=== PATIENT | male | born 1965 | race Caucasian/White ===

== ENCOUNTER 2016-09-19 04:48 | Inpatient (IN) | payer BC ==
[~2016-09-19] VITALS: Ht 180.3 cm; Wt 93.0 kg
[~2016-09-19 04:48] MED LIST: BACLOFEN10 MG PO; CIPRO500 MG PO; COLACE100 MG PO; FLAGYL500 MG PO; IBUPROFEN600 MG PO; LISINOPRIL20 MG PO; NORCO 5-325 TA1 EACH PO; TRAMADOL HCL50 MG PO; TRAZODONE HCL150 MG PO
[2016-09-19] MEDS ORDERED: TRAZODONE HCL100 MG PO (10:51)
--- NOTE | 2016-09-19 10:57 | NUR ---
MED REC COMPLETED WITH KIM AND [facility] REFILL HISTORY
--- NOTE | 2016-09-19 12:12 | NUR ---
PT IS RESTING IN BED SAFELY WITH EYES CLOSED AND RESPERATIONS EVEN. PT FINISHED HIS TRAY AND DID NOT NEED ANYTHING ELSE AT THE MOMENT.
--- NOTE | 2016-09-19 14:22 | NUR ---
HELPED PT TO BATHROOM, THEN RETURN TO BED. PT IS NOW RESTING IN BED WITH CALL LIGHT IN REACH. PT ASKED FOR NURSE TO COME LOOK AT IV SITE. NURSE NOTIFIED.
--- NOTE | 2016-09-19 15:03 | NUR ---
PT ARRIVED AT THE UNIT FROM ER. PT SETTLED IN BED WITH NO APPEARANT DISTRESS. PT STATES NO PAIN AT THIS TIME, FEELS SLIGHTLY BLOATED. PT UP TO TOILET WITH SBA. VOIDING WELL. IV SITE RUNNING WELL.
--- NOTE | 2016-09-19 17:37 | NUR ---
PT AMBULATES TO TOILET, 1 PERSON ASSIST, VOIDING WELL. PT STATES MILD PAIN IN ABDOMEN WITH BOWEL MOVEMENTS. PRN PAIN MEDS GIVEN X1. PT TOLERATING CLEAR LIQUID DIET WELL.
--- NOTE | 2016-09-19 21:08 | NUR ---
PT LAYING IN BED, AWAKE. ALERT AND ORIENTED X4, PLEASENT DEMEANOR. DENIES PAIN AT THIS TIME, STATES "ITS GOOD RIGHT NOW, I JUST FEEL A TINY BIT BLOATED." REFUSED ANYTHING FOR PAIN. DR ELIZA JIN IN PT ROOM, ORDERED TRAZADONE FOR TONIGHT, ORDERED HOME DOSAGE. GAVE FRESH ICE WATER. PT DENIES FURTHER NEEDS. CALL LIGHT IN REACH.
--- NOTE | 2016-09-19 23:47 | NUR ---
pt up to bathroom, passed flatus. pt complained of 6/10 pain while on toilet, gave dilaudid per pt request. no further needs. call light in reach.
--- NOTE | 2016-09-20 00:55 | NUR ---
PT LAYING IN BED AWAKE, BROUGHT MORE ICE WATER PER REQUEST. PT STATES "IM JUST NOT ABLE TO SLEEP TONIGHT." PT NOW UP TO BEDSIDE, "I THINK ILL JUST READ MY BOOK FOR A WHILE, IT FEELS REALLY GOOD TO MOVE AROUND AGAIN." PT HAS NO NEEDS AT THIS TIME. CALL LIGHT IN REACH.
--- NOTE | 2016-09-20 02:50 | NUR ---
PT REMAINS AWAKE TONIGHT, LAYING IN BED, LIGHTS AND TV OFF, BUT HE IS READING ON HIS BERTO. PT DENIES PAIN AT THIS TIME. DENIES ANY NEEDS AT THE MOMENT. CALL LIGHT IN REACH. PT STATES "ITS GETTING TO BE ABOUT THE TIME I GET UP ANYWAY."
--- NOTE | 2016-09-20 04:35 | NUR ---
PT UP TO RESTROOM. DENIES PAIN. REPORTS HAVING "LOTS OF GAS."
--- NOTE | 2016-09-20 05:55 | NUR ---
PT HAD UNEVENTFUL NIGHT. HE DID NOT GET MUCH SLEEP, REPORTS HE SUFFERS FROM CHRONIC INSOMNIA AT HOME. PT VERY PLEASENT, ALERT AND ORIENTED X4. STANDBY ASSIST. PAIN OFF AND ON, DILAUDID X2 COVERED PAIN WELL. NO NAUSEA. BM X2, DARK LOOSE STOOL. IV ABX. PT USES CALL LIGHT APPROPRIATLY.
--- NOTE | 2016-09-20 07:22 | NUR ---
BEDSIDE HANDOFF REPORT RECIEVED FROM NAVIGATION OFFICER RN. PT RESTING IN BED. PT DENIES NEEDS AT THIS TIME. REQUESTING TO SHOWER AFTER BREAKFAST.
--- NOTE | 2016-09-20 08:15 | NUR ---
PT RESTING IN BED. PT STATES PAIN TOLERABLE AT THIS TIME, INCREASED PAIN WITH BOWEL MOVEMENTS. PT DENIES SOB, ON ROOM AIR, LUNG SOUNDS CLEAR. PT DENIES NAUSEA, TOLERATING CLEAR LIQUID DIET, BOWEL TONES ACTIVE. PT REQUESTIGN TO SHOWER, SALINE LOCKED FOR SHOWER. PT DENIES NEEDS AT THIS TIME.
--- NOTE | 2016-09-20 09:00 | NUR ---
PT COMPLETED SHOWER. IV FLUIDS CONTINUED AT 85 ML/HR. IV ABX INFUSING. PT DENIES NEEDS AT THIS TIME.
--- NOTE | 2016-09-20 09:55 | NUR ---
PT AMBULATING IN DIAZ, INDPENDENT, TOLERATING WELL.
--- NOTE | 2016-09-20 12:33 | NUR ---
PT ASSISTED TO BATHROOM TO VOID. PT GIVEN PO FLAGYL AND CIPRO, PROVIDED PUDDING TO DECREASE STOMACH UPSET. PT DENIES NEEDS AT THIS TIME.
--- NOTE | 2016-09-20 13:29 | NUR ---
PT REQUESTING PAIN MEDICATION. 0.5 MG IV DILAUDID GIVEN. PT RATING PAIN 2/10 AT REST 6/10 WITH BOWEL MOVEMENT. PT DENIES OTHER NEEDS AT THIS TIME.
--- NOTE | 2016-09-20 14:23 | NUR ---
PT PAIN 05/05. PT ASSISTED TO BATHROOM TO VOID, SBA FOR IV LINE. PT DENIES NEEDS AT THIS TIME.
--- NOTE | 2016-09-20 16:20 | NUR ---
PT RESTING IN BED, FAMILY AT BEDSIDE. PT TOLERATING FULL LIQUID DIET, DENIES NAUSEA. IV FLUIDS INFUSING, IV SITE PATENT. PT WITH SCDS IN PLACE. PT DENIES NEEDS AT THIS TIME.
--- NOTE | 2016-09-20 17:13 | NUR ---
PT ALERT/ORIENTED. PT ON ROOM AIR. PT ADVANCED TO FULL LIQUID DIET. D5LR INFUSING AT 85ML/HR. PT TRANSITIONED TO PO CIPRO AND FLAGYL. PT UP WITH SBA TO BATHROOM, AMBULATED INDEPENDENTLY IN DIAZ. PLAN TO CONTINUE MONITORING RESPONSE TO ABX, POSSIBLE SURGERY TO DRAIN ABSCESS. PT VOIDING QS, HAVING LOOSE BM.
--- NOTE | 2016-09-20 20:30 | NUR ---
PT REQUESTED HS MEDICATIONS TO BE GIVEN AT AROUND "8:30 TONIGHT," SO THAT HE CAN STAY ON HIS "NORMAL ROUTINE." MEDS GIVEN. PT INDEPENDANT IN ROOM. ALERT AND ORIENTED X4. PT RATES PAIN AT 2/10, STATES "JUST A LITTLE UNCOMFORTABLE." REFUSED PAIN MEDICATIONS. GAVE FRESH ICE WATER. VITALS TAKEN. BLINDS CLOSED, LIGHTS TURNED OFF, CURTAIN AND DOOR SHUT. CALL LIGHT IN REACH.
--- NOTE | 2016-09-21 02:20 | NUR ---
PT HAS HAD UNEVENTFUL NIGHT. RESTING QUIETLY IN ROOM.
--- NOTE | 2016-09-21 05:50 | NUR ---
PT NPO AT THIS TIME, PT VERBALIZED UNDERSTANDING.
--- NOTE | 2016-09-21 05:52 | NUR ---
PT HAD UNEVENTFUL NIGHT. REPORTS FEELING MUCH BETTER THIS MORNING. NO NAUSEA OVERNIGHT. NO PAIN. NPO PER DR KAY SINCE THIS MORNING AT 0545. IV INFUSING WNL. PT ALERT AND ORIENTED X4. PLEASENT DEMEANOR. USES CALL LIGHT APPROPRIATLY. INDEPENDANT IN ROOM.
--- NOTE | 2016-09-21 07:25 | NUR ---
BEDSIDE HANDOFF REPORT RECEIVED FROM TILE GRADER RN. PT AMBULATING IN [place]. IV FLUIDS INFUSING D5LR AT 85 ML/HR. PT REQUESTING TO SHOWER THIS AM.
--- NOTE | 2016-09-21 07:37 | NUR ---
PT SALINE LOCKED FOR SHOWER. NURSE AIDE AT BEDSIDE ASSISTING PT.
--- NOTE | 2016-09-21 07:45 | NUR ---
CALLED FOR VERIFICATION ON PO ABX WITH NPO STATUS. TELEPHONE ORDER TO GIVE CIPRO AND HOLD FLAGYL.
--- NOTE | 2016-09-21 09:06 | NUR ---
PT RESTING IN BED. PT SHOWERED. PT ALERT/ORIENTED. PT LUNG SOUNDS CLEAR, ON ROOM AIR. PT BOWEL TONES ACTIVE, DENIES NAUSEA, STATES "I FEEL A LITTLE BETTER TODAY." PT NPO FOR POSSIBEL SURGERY TODAY, AWAITING DR KAY TO DISCUSS PLAN WITH PT. IV FLUIDS INFUSIN D5LR AT 85 ML/HR. PT REQUESTING INFORMATION TO BE SENT TO SHORT TERM DISABILITY, DISCUSSED WITH PT. PT DENIES OTHER NEEDS AT THIS TIME.
--- NOTE | 2016-09-21 11:00 | NUR ---
PT UP TO BATHROOM, LOOSE BOWEL MOVEMENT. PT DENIES NEEDS AT THIS TIME. PT AWAITING DR. KAY TO DISCUSS TREATMENT PLAN.
--- NOTE | 2016-09-21 11:54 | NUR ---
PT WAITING FOR CONSULT WITH DR KAY ABOUT POSSIBLE SURGERY TODAY. PT BEGAN TO DISCUSS WITH ME ABOUT WHETHER HE SHOULD CALL HIS AT WORK AND TELL HER OF THE POSSIBLE PLANS FOR TODAY, OR WAIT UNTIL WE KNOW FOR SURE. WE LOOKED AT VARIOUS SCENARIOS AND DECIDED TO PRAY FOR WISDOM AND DIRECTION. PT THANKED ME, I WILL CONTINUE TO FOLLOW
--- NOTE | 2016-09-21 14:20 | NUR ---
PT TO OR WITH OR NURSE. LR ON STRAIGHT TUBING HANGING. REPORT GIVEN TO NURSE. PREPROCEDURE CHECK LIST COMPLETED.
--- NOTE | 2016-09-21 17:34 | NUR ---
PT OFF FLOOR.
--- NOTE | 2016-09-21 18:33 | NUR ---
09/21/161832 Tegan Hillman 1818 - PT ARRIVED TO PACU. MAINTAINING OWN AIRWAY, BITE BLOCK REMOVED AT 1818. PT REPORTING PAIN OF 5/10, INTAKE MAN GAVE ADDITIONAL 50MCG FENTANYL.
--- NOTE | 2016-09-21 19:05 | NUR ---
SHIFT REPORT RECEIVED FROM SOPHIA CARRASCO. PT IS CURRENTLY OFF THE FLOOR IN SURGERY.
--- NOTE | 2016-09-21 19:30 | NUR ---
PT HAS ARRIVED TO FLOOR FROM SURGERY, REPORT RECEIVED FROM SOPHIA BARAJAS. PT IS ALERT/ORIENTED, REPORTS 5/10 ABDOMINAL PAIN, 0.5MG IV DILAUDID GIVEN. LUNGS CLEAR, RA. HR REGULAR. BOWEL TONES ACTIVE, PT DENIES NAUSEA. PT PROVIDED WITH WATER. 2 LAP SITES WITH STERISTRIPS IN PLACE, SMALL AMOUNT OF OLD SEROSANGUINOUS DRAINAGE PRESENT. JERRY TO [facility], SITE ALSO HAS LAP SITE, BOTH COVERED WITH GAUZE AND TAPE. JERRY EMPTIED OF 40ML SEROSANGUINOUS FLUID. SCD'S IN PLACE. CMS INTACT, NO EDEMA NOTED. PT DENIES FURTHER REQUESTS AT THIS TIME, WILL CONTINUE TO MONITOR.
--- NOTE | 2016-09-21 19:31 | NUR ---
PT HAS ARRIVED TO FLOOR FROM SURGERY, REPORT RECEIVED FROM SOPHIA BARAJAS. PT IS ALERT/ORIENTED, REPORTS 5/10 ABDOMINAL PAIN, 0.5MG IV DILAUDID GIVEN. LUNGS CLEAR, RA. HR REGULAR. BOWEL TONES ACTIVE, PT DENIES NAUSEA. PT PROVIDED WITH WATER. 3 LAP SITES WITH STERISTRIPS IN PLACE, SMALL AMOUNT OF OLD SEROSANGUINOUS DRAINAGE PRESENT. JERRY TO LLQ COVERED WITH GAUZE AND TAPE. JERRY EMPTIED OF 40ML SEROSANGUINOUS FLUID. SCD'S IN PLACE. CMS INTACT, NO EDEMA NOTED. PT DENIES FURTHER REQUESTS AT THIS TIME, WILL CONTINUE TO MONITOR.
--- NOTE | 2016-09-21 21:50 | NUR ---
PT GIVEN PUDDING AND SHERBET WITH CIPRO, TOLERATED WELL, DENIES NAUSEA. PT REPORTS 5/10 ABDOMINAL PAIN, 2 TABS PERCOCET GIVEN. PT REQUESTS HIS TRAZODONE, PT ORDER WAS D/C'D. CALLED DR. KAY WHO STATED I COULD REORDER TRAZODONE 250MG PO HS. PT DENIES FURTHER REQUESTS AT THIS TIME, WILL CONTINUE TO MONITOR.
--- NOTE | 2016-09-22 00:19 | NUR ---
CHECKED IN ON PT WHO IS AWAKE AND READING E-READER. REPORTS 4/10 ABDOMINAL PAIN, 0.5MG IV DILAUDID GIVEN. JERRY CHECKED, DID NOT NEED EMPTIED AT THIS TIME. PT VOIDED 125ML, URINAL EMPTIED. PT DENIES FURTHER REQUESTS, WILL CONTINUE TO MONITOR.
--- NOTE | 2016-09-22 01:51 | NUR ---
ASSESSMENT COMPLETED. PT READING IN BED, STATES HE HAS BEEN SLEEPING OFF AND ON. REPORTS ABDOMINAL PAIN 2/10, STATES IT IS TOLERABLE. LUNGS CLEAR, RA. HR REGULAR. BOWEL TONES ACTIVE. STERI STRIPS TO 3 LAP SITES, OLD DRY DRAINAGE PRESENT. JERRY TO LLQ, DRESSING C/D/I, EMPTIED OF 10ML. INSTRUCTED USE OF I.S., PT DEMONSTRATED. PT VOIDED 250ML, URINAL EMPTIED. DENIES FURTHER REQUESTS, WILL CONTINUE TO MONITOR.
--- NOTE | 2016-09-22 03:30 | NUR ---
PT APPEARS TO BE SLEEPING AT THIS TIME, RESTING WITH EYES CLOSED. NO APPARENT DISTRESS. RESPIRATIONS EVEN AND UNLABORED. WILL CONTINUE TO MONITOR.
--- NOTE | 2016-09-22 05:30 | NUR ---
PT HAS HICCUPS, REPORTS 4/10 ABDOMINAL PAIN. 2 TABS PERCOCET GIVEN. DENIES NAUSEA. DENIES FURTHER REQUESTS AT THIS TIME.
--- NOTE | 2016-09-22 05:47 | NUR ---
PT SLEPT OFF AND ON THROUGHOUT NIGHT. PAIN WELL CONTROLLED WITH PRN MEDICATIONS, IV DILAUDID GIVEN TWICE AND PO PERCOCET GIVEN TWICE. NO NAUSEA, TOLERATING FULL LIQUIDS, BOWEL TONES ACTIVE. LUNGS CLEAR, RA. HR REGULAR. LAP SITES HAVE STERISTRIPS, OLD DRIED DRAINAGE PRESENT, UNCHANGED. JERRY TO LLQ, GAUZE AND TAPE TO SITE, C/D/I. JERRY DRAINING SEROSANGUINOUS FLUID, OUTPUT SLOWING DOWN. NARGIS PATCH TO LEFT SHOULDER. PO CIPRO AND PO FLAGYL. IV PATENT, D5LR @85ML/HR. VOIDING QS. AFEBRILE, VSS. 1-PA.
--- NOTE | 2016-09-22 07:00 | NUR ---
BEDSIDE HANDOFF REPORT RECEIVED FROM SKIN CARE TECHNICIAN RN. PT RESTING IN BED. IV FLUIDS INFUISNG AT 85 ML/HR. PT STATES PAIN TOLERABLE, GOOD RELIEF FROM PERCOCET. STERISTRIPS INTACT, OLD BLOODY DRAINAGE. JERRY TO LLQ, DRAINING SEROSANGUINOUS FLUID. PT DENIES NEEDS AT THIS TIME.
--- NOTE | 2016-09-22 09:30 | NUR ---
PT WALKING IN DIAZ WITH NURSES AIDE. TOLERATING WELL.
--- NOTE | 2016-09-22 10:24 | NUR ---
PT REQUESTING PAIN MEDICATION. PT STATES HE FELT "WHOOSY" AFTER 2 PERCOCET, REQUESTING TO TAKE 1 TAB. 1 TAB GIVEN. PT RATING PAIN 4/10. PT RQUESTING SHOWER CAP AND BEDS BATH, ASSISTED. PT DENIES OTHER NEEDS AT THIS TIME.
--- NOTE | 2016-09-22 11:33 | NUR ---
PT SITTING IN CHAIR, ALERT, ORIENTED AND SUPPORTED BY VISITORS. HE STATED THAT HE DIDN'T GET MUCH SLEEP, BUT WASN'T BOTHERED BY IT. HE SAID HE WILL JUST TRY TO NAP THE DAY GOES. PT SEEMS SOMEWHAT CONCERNED ABOUT DRAIN TUBE INSERTED TO HELP WITH FLUID. HE SAID I HOPE IT WILL BE GONE BEFORE HE IS DC'D. PT ACK- NOWLEDGED HIS PAIN AT 3-4, WHICH SEEMS TOLERABLE TO HIM. HE THANKED ME FOR VISIT AND SHOOK MY HAND. WILL CONTINUE TO FOLLOW
--- NOTE | 2016-09-22 11:55 | NUR ---
PT RATING PAIN 2/10. PT STATES 1 TAB PERCOCET EFFECTIVE FOR PAIN MANAGEMENT. PT STATES HE DOES NOT FEEL "WHOOZY" WITH 1 TAB. PT INSTRUCTED TO NOTIFY RN IF PAIN IS NOT WELL CONTROLLED.
--- NOTE | 2016-09-22 12:50 | NUR ---
PT WALKING IN DIAZ WITH NURSES AIDE, TOLERATING WELL.
--- NOTE | 2016-09-22 14:30 | NUR ---
PT RESTING COMFORTABLY IN BED. PT LUNG SOUNDS CLEAR, ON ROOM AIR. PT DENIES NAUSEA, CONTINUES TO HAVE HICCUPS, USUALLY WHEN OOB. PT WITH FLATUS, NO BMP. PT TOLERATING REGULAR DIET WELL. IV FLUIDS INFUSING D5LR AT 85 ML/HR. PT STATES HE WANTS TO WALK SOON THEN WILL CALL FOR PAIN MEDICATION.
--- NOTE | 2016-09-22 17:08 | NUR ---
PT RESTING IN BED, FAMILY AT BEDSIDE. PT DENIES NEEDS AT THIS TIME. PT DENIES NAUSEA, CONTINUES TO HAVE HICCUPS.
--- NOTE | 2016-09-22 18:00 | NUR ---
PT WALKING IN DIAZ WITH DAUGHTER, TOLERATING WELL.
--- NOTE | 2016-09-22 18:40 | NUR ---
PT ALERT/ORIENTED. PT ON ROOM AIR, LUNG SOUNDS CLEAR. PT DENIEA NAUSEA, HAS HICCUPS THROUGHOUT SHIFT, BOWL TONES ACTIVE. TOLERATING REGULAR DIET, PT AMBULATED IN DIAZ SEVERAL TIMES TODAY. FLATUS, NO BM. IV FLUIDS D5LR AT 85 ML/HR. PAIN WELL CONTROLLED WITH 1 TAB PERCOCET. PT INDEPENDENT. VOIDING IN URINAL QS. JERRY DRAIN WITH SEROSANGUINOUS FLUID.
--- NOTE | 2016-09-22 19:15 | NUR ---
BEDSIDE SHIFT REPORT RECEIVED FROM SOPHIA CARRASCO. PT IS CURRENTLY RESTING IN BED. RA. IV INFUSING WNL, D5LR @85. DENIES FURTHER REQUESTS AT THIS TIME, WILL CONTINUE TO MONITOR.
--- NOTE | 2016-09-22 20:40 | NUR ---
ASSESSMENT COMPLETED. PT IS ALERT/ORIENTED. RATES PAIN IN ABDOMEN 4/10, 1 TAB PERCOCET GIVEN PER PT REQUEST, WILL TITRATE UP TO FULL DOSE IF NEEDED. LUNGS CLEAR, RA. HR REGULAR. BOWEL TONES ACTIVE, ABDOMEN MILDLY DISTENDED. ABDOMINAL LAP SITES X3, STERISTRIPS IN PLACE, OLD DRIED DRAINAGE PRESENT. JERRY TO LLQ, DRESSING C/D/I, MINIMAL OUTPUT FROM DRAIN. SCD'S IN PLACE. IV PATENT, D5LR @85ML/HR. PT DENIES NEEDS AT THIS TIME, WILL CONTINUE TO MONITOR.
--- NOTE | 2016-09-22 22:30 | NUR ---
PT SLEEPING AT THIS TIME, NO APPARNT DISTRESS.
--- NOTE | 2016-09-23 00:02 | NUR ---
CHECKED IN ON PT WHO IS SLEEPING AT THIS TIME. RESPIRATIONS EVEN AND UNLABORED. NO APPARENT DISTRESS. WILL CONTINUE TO MONITOR.
--- NOTE | 2016-09-23 02:46 | NUR ---
PT CALLED TO REQUEST SOME TEA. ASSESSMENT COMPLETED. PT STATES HE'S BEEN SLEEPING WELL, NOW HAS HICCUPS. REPORTS 4/10 PAIN, 1 TAB PERCOCET GIVEN PER PT REQUEST. NO CHANGES FROM PREVIOUS ASSESSMENT. PT DENIES FURTHER REQUETS AT THIS TIME, WILL CONTINUE TO MONITOR.
--- NOTE | 2016-09-23 04:19 | NUR ---
PT UP AMBULATING IN HALLWAY AT THIS TIME.
--- NOTE | 2016-09-23 05:21 | NUR ---
PT HAD GOOD NIGHT, WAS ABLE TO SLEEP WELL. PAIN WELL CONTROLLED WITH 1 TAB PERCOCET, GIVEN TWICE. NO NAUSEA. LUNGS CLEAR, RA. HR REUGULAR. BOWEL TONES ACTIVE. LAP SITES X3 WITH STERI STRIPS IN PLACE, NO NEW DRAINAGE. JERRY TO LLQ, DRESSING C/D/I, ONLY PUTTING OUT SCANT SEROSANGUINOUS DRAINAGE. AMBULATED IN HALLWAY THIS MORNING. CONTINUES TO HAVE INTERMITTENT HICCUPS. IV PATENT, D5LR @85ML/HR. PO ABX: CIPRO AND FLAGYL. SCD'S IN PLACE. PT USES I.S. INDEPENDENTLY. PT HOPES TO D/C HOME TODAY.
--- NOTE | 2016-09-23 08:34 | NUR ---
PATIENT UP AMBULATING IN THE HALLWAY AND IS STEADY ON HIS FEET, PT STILL HAVING TROUBLE WITH HICCUPS THIS AM AND HAS ABDOMINAL PAIN 4/10. PATIENT GIVEN 1 PERCOCET PO TO COVER HIS ABDOMINAL PAIN AND ORAL ANTIBIOTICS GIVEN WITH FOOD. PATIENT TOLERATING DIET WELL WITH NO C/O NAUSEA AND IS PASSING GAS AND HAD A BM. PATIENT CAN DEMONSTRATE HOW TO EMPTY THE JERRY.
--- NOTE | 2016-09-23 09:30 | NUR ---
PATIENT UP AMBULATING IN THE HALLWAY INDEPENDENTLY. PATIENT IS STEAD ON HIS FEET.
--- NOTE | 2016-09-23 11:11 | NUR ---
PATIENT UP AMBULATING THE HALLWAY INDEPENDENTLY, NO C/O PAIN JUST C/O BLOATING, PT IS ABLE TO PASS GAS STILL HAS C/O HICCUPS. I AND O COMPLETE.
--- NOTE | 2016-09-23 11:45 | NUR ---
SCHEDULED MEDICATION GIVEN AT THIS TIME, PATIENT WAITING FOR LUNCH AND WATER FILLED UP. NO C/O PAIN AT THIS TIME AND PATIENT DENIES OTHER NEEDS.
[2016-09-23] MEDS ORDERED: CIPROFLOXACIN500 MG PO (12:55)
[2016-09-23] MEDS ORDERED: METRONIDAZOLE250 MG PO (12:56)
[2016-09-23] MEDS ORDERED: NICOTINE PATCH1 EAC1 TD (12:56)
[2016-09-23] MEDS ORDERED: OXYCODON-ACETA1 EAC2 PO (12:57)
[2016-09-23] MEDS ORDERED: TRAZODONE HCL100 MG PO (12:57)
--- NOTE | 2016-09-23 13:48 | NUR ---
PATIENT GIVEN D/C INSTRUCTIONS QUESTIONS ANSWERED, IV DC'D IN THE LEFT A/C TIP INTACT NO REDDNESS OR SWELLING NOTED. PATIENT GIVEN 1 PERCOCET PO FOR PAIN.
--- NOTE | 2016-10-28 10:13 | OR ---
[facility] [address], [place] [address] Signed DATE OF PROCEDURE: 09/21/16 PREOPERATIVE DIAGNOSIS Severe persistent diverticular disease with pelvic and pericolonic abscess. POSTOPERATIVE DIAGNOSIS Severe persistent diverticular disease with pelvic and pericolonic abscess. PROCEDURE Laparoscopy with takedown of adhesions. Laparoscopic drainage of pelvic abscess and peridiverticular sigmoidal abscess. Laparoscopic lavage of lower abdomen and placement of 7 mm flat Patrick drain. ANESTHESIA: General endotracheal (Lanny Mansfield CRNA). INDICATION This 51-year-old white man who is a patient of Dr. Bowman and over a week ago was diagnosed clinically with acute diverticulitis and treated with outpatient antibiotic therapy of Cipro and Flagyl. A CT scan was performed confirming diverticulitis with no complicating factors. He was nearing completion of his antibiotic course when his symptoms worsened. He presented to the emergency room where he was noted to have a normal white count, but complains of suprapubic tenderness, which were worsening. Additionally, he had pain upon defecation . He had no associated pneumaturia. A CT scan was performed once again at my recommendation, which showed a peridiverticular abscess about 2-3 cm in the region of the sigmoid and lower, essentially in the pelvis, an abscess approximately 4-5 cm in diameter. He was admitted by me and given intravenous antibiotics, clear liquid diet, and his white count was noted to be normal. He had overall no evidence of systemic toxicity, but persisted with his pain, predictably upon defecation. Close review of his CT scan showed some fluid collection in the pelvis to be directly behind the bladder itself, lower than what would be expected for diverticular abscess and the smaller abscess near the sigmoid itself. Given his persistent symptoms and a well formed wall of the abscess cavity, predictably in the pelvis, have recommended laparoscopy with laparoscopic drainage as appropriate. The risk of bleeding, infection, need for open procedure, and possible need for future sigmoid resection were reviewed with him in detail as well as his . Both understand and wished to proceed. FINDINGS Upon laparoscopy, there was no evidence of ascites or carcinomatosis. There were adhesions of small bowel to the left lower abdomen as were adhesions of the sigmoid colon and obvious diverticula seen as well. Dense adhesions were noted as well. All Electronically Signed By: CITLALI KAY MD 10/28/16 1013 PATIENT NAME: EVELYN SHEN OPERATIVE REPORT DATE OF : 63 PHYSICIAN: CITLALI KAY MD REPORT #: [id number] REPORT IS CONFIDENTIAL AND NOT TO BE RELEASED WITHOUT AUTHORIZATION [facility] [address], [place] [address] Signed adhesions were taken down bluntly. Two fluid collections were identified, one with thick yellow green purulent material. This was near the sigmoid and a good specimen was obtained for gram stain and culture. The other abscess, the larger of the two on CT scan, located in the anterior rectosigmoid area was encountered and had a chronic inflammatory rind, but did not have the considerable amount of purulent material that the other did. Both sites were copiously irrigated with saline solution and ultimately a drain placed as well. The adhesions to the abdominal wall of sigmoid and small bowel were bluntly taken down without complications. However, the bladder generally appeared normal. There were no other findings of concern. DESCRIPTION OF PROCEDURE The patient was brought to the operating room and given a general endotracheal anesthetic. Preoperative antibiotic cephalexin was given. Sequential compression device stockings were used, and heparin subcutaneously administered. A Comer catheter was placed by the circulating nurse and the abdomen was clipped and prepared with a chlorhexidine solution and draped sterilely. An infraumbilical incision was made and using an open Max cannul a technique pneumoperitoneum achieved to a level of 14 mmHg of carbon dioxide gas. Introduction of the 30-degree angled laparoscope was undertaken showing intraabdominal structures to be normal, though there were adhesions of small bowel to the left lower abdomen to a degree. Upper abdominal examination showed normal liver. An epigastric port was placed, this also a 12 mm port and a camera were placed to that side. With blunt dissection, small bowel loops in lower abdomen were noted. Most of them were freed and not with adhesions, but some were and some were tethered moderately densely to the abdominal wall. A right lower quadrant 5 mm trocar was placed under direct visualization. With two hand manipulation, the umbilicus in the right lower quadrant and with a camera at the subxiphoid side, small bowel loops were interrogated and gently positioned out of the pelvis. Steep Trendelenburg was used to provide better exposure and ultimately right side down as well. Dense adhesions of omentum and sigmoid to t h e anterior abdominal wall were noted in the lateral aspect. Orientation of the sacral promontory and sigmoid and so forth were slightly challenging due to small bowel loops which were gently manipulated and kept out of the way for further dissection. Once the sigmoid was positively identified, it was used as an anatomic marker and proximal blunt dissection undertaken freeing the sigmoid and small bowel loops from the abdominal wall. Electronically Signed By: CITLALI KAY MD 10/28/16 1013 PATIENT NAME: EVELYN SHEN OPERATIVE REPORT DATE OF : 63 PHYSICIAN: CITLALI KAY MD REPORT #: [id number] REPORT IS CONFIDENTIAL AND NOT TO BE RELEASED WITHOUT AUTHORIZATION [facility] [address], [place] [address] Signed Encountered ultimately was an abscess approximately 3 cm in size, which had thick purulent material, greenish yellow in color. This was suctioned free and a Luki tube was used to collect it anticipating gram stain and culture. These adhesions were taken down more bluntly and irrigation undertaken as appropriate. There was no radha obvious hole in the sigmoid and certainly no fecal contamination (Hinchey class 3). Reorientation of the scope was undertaken as there was distortion of the distal sigmoid and proximal rectum. With blunt dissection, midline was better identified and sigmoid was fully examined. Considering the position of the larger pelvic abscess on CT scan, ultimately the coiled distal sigmoid and rectosigmoid was straightened and ultimately encountering an abscess cavity, which was more well formed than the previous abscess, but with less purulent material. Irrigation was undertaken fully. With various manipulation, the anatomy was more fully defined. It was deemed appropriate to place the drain, at least in the lower abscess and along the left pericolic gutter as well. A left lower quadrant 5 mm trocar was placed and a 5 mm straight, flat, Patrick drain passed through it and allowing the catheter to be manipulated alongside the sigmoid and rectosigmoid in the abscess cavity site. Copious irrigation was undertaken with antibiotic containing saline solution and ultimately suctioned free. The drain was secured to the skin with nylon suture. Additional blunt dissection freed the abdominal cavity from any enteric adhesions freeing the peritoneal cavity entirely. Photographs were taken throughout. Camera was placed in the umbilical area and the 12 mm port was removed without definite problem and the right lower quadrant 5 mm port removed without definite problem either. The infraumbilical fascial incision was reap proximated with interrupted 0 Vicryl suture following the copious irrigation with saline solution and 10 mL of 0.25% Marcaine with epinephrine injected in the trocar sites. The drain was ultimately attached to bulb suction, which had a fair amount of persisting thin, red fluid, not unlike a del castillo Toribio-Aid, which will be considered normal in this situation. He was ultimately extubated and transferred to recovery room in good condition having suffered no complication. Sponge, needle, and instrument counts were reported as correct x3. Not mentioned was the application of Steri-Strips to each incision site and a sterile gauze to the drain site. Blood loss was minimal. Complication was none. Citlali Kay MD Electronically Signed By: CITLALI KAY MD 10/28/16 1013 PATIENT NAME: EVELYN SHEN OPERATIVE REPORT DATE OF : 63 PHYSICIAN: CITLALI KAY MD REPORT #: [id number] REPORT IS CONFIDENTIAL AND NOT TO BE RELEASED WITHOUT AUTHORIZATION [facility] [address], [place] [address] Signed MONIE/Alverto /[id number] cc: DO Mark Miner MD Electronically Signed By: CITLALI KAY MD 10/28/16 1013 PATIENT NAME: ACEVELYN OPERATIVE REPORT DATE OF : 63 PHYSICIAN: CITLALI KAY MD REPORT #: [id number] REPORT IS CONFIDENTIAL AND NOT TO BE RELEASED WITHOUT AUTHORIZATION
--- NOTE | 2016-10-28 10:13 | DS ---
[facility] [address], [place] [address] Signed DATE OF DISCHARGE: 09/23/16 REASON FOR ADMISSION This 51-year-old white man has had greater than 1 week of outpatient treatment for acute sigmoid diverticulitis. He was treated with Cipro and Flagyl under the direction of Dr. Bowman. His symptoms worsened, and he was seen in the emergency room and evaluated and found to have mainly pain in the suprapubic area as well as some in the left lower quadrant. The patient had normal white count, no fever, but enough pain that concern was maintained for progression of his diverticular process. He underwent a CT scan in the emergency room under my direction and recommendation which showed 2 abscesses, one nearly 5 cm in the low rectosigmoid area and a smaller abscess about 2 to 3 cm in the sigmoid itself. He was admitted for further evaluation and care. PERTINENT PHYSICAL Exam showed a well-developed, well-nourished, white man who did not look to be systemically toxic. Neck was normal. CHEST: Clear. HEART: Regular without murmur. ABDOMEN: Soft without sign of hernia. There was mild left lower abdominal tenderness, but there was no ascites. Extremities showed no clubbing, cyanosis, or edema. LAB STUDIES Showed normal electrolytes and liver enzymes. White count was only 8.2, hematocrit 44.0, and platelets 196,000. Urinalysis normal. Of special note, he had no complaints of pneumaturia. HOSPITAL COURSE He was admitted and given intravenous fluids and allowed clear liquids and started on broad-spectrum antibiotic, piperacillin and Flagyl. He tolerated all of this well. His white count dropped to 6.0. Close review of the CT scan showed the fluid collection particularly in the pelvic area to be somewhat atypical in its appearance as it was relatively low in an area that would not really be considered the sigmoid but rather the rectosigmoid junction. A coiled compressed sigmoid can often manifest this way, it is acknowledged on that basis. Concern was made for whether or not drainage of the abscess as well as a small peridiverticular abscess in the sigmoid proper would be needed or not. With time, he showed no evidence of progression of sepsis in anyway, but with bowel movements had rather extreme low pelvic pain. On the basis of that and in the high probability that the abscess may or may not be cured on its own, recommendation was made for pelvic abscess drainage. As there was no interventional radiologist in this area, laparoscopic approach was deemed most appropriate if possible. Electronically Signed By: CITLALI KAY MD 10/28/16 1013 PATIENT NAME: EVELYN SHEN DISCHARGE SUMMARY DATE OF : 63 PHYSICIAN: CITLALI KAY MD REPORT #: [id number] REPORT IS CONFIDENTIAL AND NOT TO BE RELEASED WITHOUT AUTHORIZATION [facility] [address], [place] [address] Signed On September 21, 2016, he un derwent laparoscopy. Adhesions of the sigmoid and small bowel loops to the left lower abdomen were taken down. An abscess was identified in the sigmoidal area, plan for drainage. Thick purulent material was noted. Gram stain and culture did not show organ i sms, and there was no growth at the time of discharge from the hospital for both aerobes and anaerobes. A larger abscess cavity was noted in the low rectosigmoid area which was opened, and a drain was passed through a left lower abdominal incision covering both the left pericolic gutter and the 2 abscess cavities. Of note, there were omental adhesions as well as small-bowel adhesions to the abdominal wall which were taken down with blunt dissection. Postoperatively, he was maintained on broad-spectrum antibiotics and ultimately transitioned to Cipro and Flagyl orally administered. Drain showed only serosanguineous fluid, no evidence of radha purulence. His symptoms of pelvic pain and particularly those upon defecation were much improved following operation. On the day of discharge, he is ambulating well, tolerating a low-fiber diet as well as oral analgesic medication. The drainage showing serosanguineous fluid only and not in copious amounts. It is likely that sigmoid resection would be appropriate for him once the acute inflammatory changes have resolved so as to allow for high probability of healing of the anastomosis that would result. We discussed this in detail. At discharge, he will avoid lifting more than 20 pounds for the next 2 weeks. He will keep Steri-Strips on and is permitted to shower daily. He will maintain a low-fiber diet and return to work in 1 week though he may require more than that depending on how things go. I will see him back in the office in 7 to 10 days at which time the drain will be removed. If he has problems in the meantime, he will let me know. Long-term plan would be elective sigmoid resection and we discussed that as well. DISCHARGE DIAGNOSES Persistent or worsening acute diverticulitis with peridiverticular abscess x2 (3 cm and 5 cm), status post laparoscopic drainage of abscesses. Tobacco use (2). Hypertension. Insomnia. Electronically Signed By: CITLALI KAY MD 10/28/16 1013 PATIENT NAME: EVELYN SHEN DISCHARGE SUMMARY DATE OF : 63 PHYSICIAN: CITLALI KAY MD REPORT #: [id number] REPORT IS CONFIDENTIAL AND NOT TO BE RELEASED WITHOUT AUTHORIZATION [facility] [address] [place], [place] [address] Signed DISCHARGE MEDICATIONS Include: Cipro 500 mg 1 tablet p.o. b.i.d. #14. Flagyl 250 mg 1 tablet p.o. t.i.d., to avoid alcohol. Nicotine patch 21 mg 1 patch daily #30, refill 3. Percocet 7.5/325 one to two p.o. q.4 hours p.r.n. pain #20. Trazodone 250 mg p.o. at bedtime. He will continue with his baclofen 10-tablets half tab p.o. t.i.d. as needed. Lisinopril 20 mg p.o. q. day. Motrin 600 mg p.o. q.12 h. as needed for pain. MD MONIE Baez/Modl /[id number] cc: Efrain Bowman DO [facility] Mark Keith MD [facility] Electronically Signed By: CITLALI KAY MD 10/28/16 1013 PATIENT NAME: EVELYN SHEN DISCHARGE SUMMARY DATE OF : 63 PHYSICIAN: CITLALI KAY MD REPORT #: [id number] REPORT IS CONFIDENTIAL AND NOT TO BE RELEASED WITHOUT AUTHORIZATION
== END 2016-09-23 14:20 | disposition home or self-care (01) | DRG 336 ==
LOC: ED 04:48 → MS 10:22
PROVIDERS: ADMIT Surgery
PROC: 0DNN4ZZ Release Sigmoid Colon, Percutaneous Endoscopic Approach (ICD-10-PCS; 2016-09-21)
PROC: 0W9F40Z Drainage of Abdominal Wall with Drainage Device, Percutaneous Endoscopic Approach (ICD-10-PCS; 2016-09-21)
PROC: 0DNG4ZZ Release Left Large Intestine, Percutaneous Endoscopic Approach (ICD-10-PCS; principal; 2016-09-21 14:45)
DX: K57.20 Diverticulitis of large intestine with perforation and abscess without bleeding (principal); F17.210 Nicotine dependence, cigarettes, uncomplicated; I10 Essential (primary) hypertension; G47.00 Insomnia, unspecified
CPT/HCPCS: 00840; 36415; 74177; 80053; 81001; 85025; 87070; 87075; 87205; 94760; 96361; 96365; 96366; 99285; 99406; J0694; J1100; J1170; J1644; J1885; J2250; J2370; J2405; J2543; J2704; J3010; J7030; J7120; Q9967

== ENCOUNTER 2016-10-19 12:26 | Inpatient (IN) | payer BC ==
[~2016-10-19] VITALS: Ht 180.3 cm; Wt 85.3 kg
[~2016-10-19 12:26] MED LIST changes: +CIPROFLOXACIN500 MG PO; +METRONIDAZOLE250 MG PO; +NICOTINE PATCH1 EAC1 TD; +OXYCODON-ACETA1 EAC2 PO; +TRAZODONE HCL100 MG PO
[2016-10-26] MEDS ORDERED: CIPROFLOXACIN500 MG PO (09:07)
--- NOTE | 2016-10-26 13:30 | NUR ---
10/26/16 1330 Isaias Hernandez SAT 100, O2 DECREASED TO 6L.
--- NOTE | 2016-10-26 14:30 | NUR ---
PATIENT ADMITTED TO THE FLOOR FROM SURGERY TO ROOM 114 IN HIS BED ON OXYGEN AT 2L PER NC. PATIENT IS ALERT AND ORIENTED AND PLACED ON A PULSE OX. FISH WARDEN AND IV FLUID STARTED AT THIS TIME. SCD'S ON. MIDLINE INCISION CDI WITH A MEPILEX AND OPSITE, JERRY INTACT, SANDS INTACT.
--- NOTE | 2016-10-26 15:19 | NUR ---
MESSAGE LEFT FOR DOCTOR ELIZA IN SURGERY FOR A NICOTINE PATCH
--- NOTE | 2016-10-26 15:43 | NUR ---
JERRY EMPTIED AT THIS TIME 75 MLS OUT OF SERROUS FLUID. PATIENT VITALS TAKEN, SYSTOLIC BLOOD PRESSURE 102 PATIENT DENIES ANY DIZZINESS OR PAIN AT THIS TIME, DRESSING IS CDI AND PULSE IS 59 AT THIS TIME.
--- NOTE | 2016-10-26 16:36 | NUR ---
PATIENT TAKEN OFF OXYGEN AT THIS TIME, PATIENT IS 96% ON RA. PATIENT REMAINS ALERT AND OREIENTED AND PAIN LEVEL AT THIS TIME IS AT A 3/10. HE IS USING HIS BRASS BURNISHER APPROPRIATLY. DRESSING TO HIS ABDOMEN IS CDI.
--- NOTE | 2016-10-26 17:14 | NUR ---
I AND O COMPLETED AT THIS TIME, PATIENT WAS ABLE TO TOLERATE A CLEAR LIQUID TRAY WITH NO COMPLAINTS OF NAUSEA. PATIENT'S PAIN IS TOLERABLE WITH USING THE HOT SEALING MACHINE OPERATOR. PATIENT REMAINS ON RA WITH SATURATIONS AT 93%.
--- NOTE | 2016-10-26 17:22 | NUR ---
ORDER RECEIVED AT THIS TIME FOR A NICOTINE PATCH, 21MG TOPICAL DAILY.
--- NOTE | 2016-10-26 18:21 | NUR ---
PATIENT GOT UP AND AMBULATED TO THE BATHROOM AND ATTEMPTED TO HAVE A BM. PATIENT HAD NO SUCCESS BUT WAS STEADY ON HIS FEET AND TOLERATED AMBULATING WELL.
--- NOTE | 2016-10-26 18:27 | NUR ---
PATIENT PROVIDED WITH A WARM BLANKET, SHE HAS NO C/O CHEST PAIN AT THIS TIME AND IS RESTING ON HER RIGHT SIDE. SHE REMAINS ON RA AND HAS NO C/O SOB.
--- NOTE | 2016-10-26 19:10 | NUR ---
BEDSIDE SHIFT REPORT RECEIVED FROM SOPHIA TERRELL. PT IS SITTING UP IN BED, ALERT AND ORIENTED, DR. KAY JUST FINISHED SPEAKING WITH PT. PT HAS IVF AND DILAUDID LINE UP MACHINE OPERATOR INFUSING WNL. SANDS IN PLACE. PT DENIES NEEDS AT THIS TIME, CALL LIGHT IS WITHIN REACH.
--- NOTE | 2016-10-26 20:58 | NUR ---
ASSESSMENT COMPLETED. PT IS ALERT/ORIENTED, REPORTS 3/10 ABDOMINAL PAIN, STATES THAT DILAUDID SNOW TECHNICIAN IS WORKING WELL FOR HIM. DENIES NAUSEA. LUNGS CLEAR, RA, PULSE OX. HR REGULAR. BOWEL TONES PRESENT, SLIGHTLY HYPOACTIVE. DRESSING TO MIDLINE INCISION HAS SCANT AMOUNT OF SHADOWING PRESENT, OTHERWISE IS INTACT. JERRY TO LLQ IS DRAINING SEROSANGUINOUS FLUID, DRESSING TO INSERTION SITE IS C/D/I. SCD'S IN PLACE. PT REQUESTS TO AMBULATE IN HALLWAY, WALKED X2 LAPS WITH SBA, TOLERATED WELL. SANDS IN PLACE, DRAINING CONCENTRATED URINE. PT REQUESTED HIS NIGHTLY TRAZODONE, DR. KAY CALLED, ORDER RECEIVED FOR 250MG PO TRAZODONE NIGHTLY. PT NOW RESTING IN BED, DENIES FURTHER REQUESTS AT THIS TIME. CALL LIGHT IS WITHIN REACH.
--- NOTE | 2016-10-26 23:28 | NUR ---
CHECKED IN ON PT WHO IS AWAKE, RESTING IN BED. STATES HE IS HAVING TROUBLE SLEEPING AND HAS BEEN READING. DENIES PAIN AND NAUSEA. DENIES FURTHER REQUESTS AT THIS TIME.
--- NOTE | 2016-10-27 01:45 | NUR ---
PT FINISHED AMBULATING IN HALLWAY WITH HEEL BOOM OPERATOR, REPORTS NAUSEA. PRN IV ZOFRAN GIVEN. PT DENIES FURTHER REQUESTS.
--- NOTE | 2016-10-27 02:05 | NUR ---
ASSESSMENT COMPLETED. REPORTS PAIN IS WELL CONTROLLED WITH PRODUCTION PATTERN MAKER. STATES THAT NAUSEA IS STARTING TO IMPROVE. LUNGS CLEAR, RA. HR REGULAR. BOWEL TONES REMAIN HYPOACTIVE. DRESSING TO MIDLINE REMAINS UNCHANGED, SCANT AMOUNT OF SHADOWING PRESENT. DRESSING TO JERRY INSERTION SITE IS C/D/I. JERRY CONTINUES TO DRAIN SEROSANGUINOUS FLUID. SANDS DRAINING FREELY. IV INFUSING WNL. DENIES FURTHER REQUESTS AT THIS TIME.
--- NOTE | 2016-10-27 04:05 | NUR ---
PT CALLED TO REQUEST TO AMBULATE IN HALLWAY. UPON STANDING, BECAME NAUSEATED AND HAD 100ML EMESIS. 12.5MG IV PHENERGAN ADMINISTERED. PT NOW AMBULATING IN HALLWAY WITH SBA.
--- NOTE | 2016-10-27 04:30 | NUR ---
PT WALKED 4 LAPS IN HALLWAY AND HAS RETURNED TO BED. PT STATES THAT HE IS FEELING ITCHY, 10MG NUBAIN ADMINISTERED. PT NOW FEELING SLEEPY FROM PHENERGAN AND WISHES TO SLEEP. PT DESATED ON RA, 1L VIA NC IN PLACE.
--- NOTE | 2016-10-27 06:34 | NUR ---
PT AWAKE OFTEN DURING NIGHT. PAIN ADEQUATELY CONTROLLED WITH DILAUDID BRUSH CLEARER SURVEYING. NAUSEATED, ZOFRAN AND PHENERGAN EACH GIVEN ONCE. LUNGS CLEAR, RA, 1L PLACED DURING SLEEP, PULSE OX. HR REGULAR. BOWEL TONES PRESENT, SLIGHTLY HYPOACTIVE. MIDLINE DRESSING HAS SCANT AMOUNT OF DRAINAGE, UNCHANGED DURING SHIFT. JERRY DRAINING SEROSANGUINOUS FLUID, DRESSING AT INSERTION SITE IS C/D/I. NUBAIN GIVEN ONCE FOR ITCHING. AMBULATED HALLWAY X4, TOLERATED WELL, SBA. SANDS DRAINING FREELY. IV PATENT, D5LR @85, IV ABX: CEFOXITIN.
--- NOTE | 2016-10-27 09:32 | NUR ---
PATIENT UP IN ROOM, AMBULATING IN HALLS. TOLERATING CLEAR FLUIDS WELL, NO COMPLAINTS OF NAUSEA. ABDOMEN SOFT, BOWEL TONES ACTIVE. LUNG SOUNDS CLEAR THROUGHOUT. AFEBRILE. JERRY DRAIN 10ML OUT. ROUNDED WITH DR. KAY. PLAN TO ADD TORADOL IV TO MEDICAITON REGIME, AND AIDA SANDS.
--- NOTE | 2016-10-27 12:11 | NUR ---
MED REC COMPLETE WITH [facility] REFILL HISTORY.
--- NOTE | 2016-10-27 12:30 | NUR ---
PT RESTING IN BED. PT REQUESTING PAIN MEDICATION, GIVEN IV KETORALAC. PT DENIES NAUSEA, BOWLE TONES ACTIVE, TOLERATING CLEAR LIQUID DIET. PT UP INDEPENDENT IN THE ROOM. PT VOIDING WITHOUT DIFFICULTY. PT DENIES NEEDS AT THIS TIME.
--- NOTE | 2016-10-27 13:32 | NUR ---
PT RESTING IN CHAIR, FEELING MUCH BETTER ABOUT HIS SITUATION NOW. TIRED OF JELLO-ESPECIALLY GREEN AND YELLOW. DR KAY SEEMED ENCOURAGING TO HIM THAT WHEN THINGS HEAL, LIFE SHOULD RETURN TO A MORE REGULAR ROUTINE. PT IS EXPECTING A NUMBER OF VISITORS THIS AFTERNOON. HAD PRAYER WITH PT AND ENCOURAGED HIM TO REST FOR HIS VISITORS.
--- NOTE | 2016-10-27 14:06 | NUR ---
RETAIL SERVICE REPRESENTATIVE SYRINGE CHANGED. PT STATES PAIN TOLERABLE, RATING 3/10. PT STATES KETORALAC WAS EFFECTIVE IN TAKING THE DULL ACHE AWAY. PT DENIES NEEDS AT THIS TIME.
--- NOTE | 2016-10-27 14:34 | NUR ---
PT ASSISTED TO WALK IN DIAZ. PT WALKED 5 LAPS AROUND NURSING FLOOR, TOLERATED WELL. PT COMPLAINT OF PURITIS, DECLINING MEDICATION AT THIS TIME. PT PROVIDED WITH LOTION AND INSTRUCTED TO CALL IF ITCHING BECOMES WORSE. PT DENIES NEEDS AT THIS TIME. FRIENDS AT BEDSIDE.
--- NOTE | 2016-10-27 16:52 | NUR ---
when I got here this morning patient was walking with DOCUMENTATION CONSULTANT from night nurse. Did 5 laps around med surg.
--- NOTE | 2016-10-27 16:55 | NUR ---
Around 11AM today patient walked another 5 laps around med surg. with me
--- NOTE | 2016-10-27 17:04 | NUR ---
PT SITTING IN CHAIR. PT ON ROOM AIR, O2 SATS 96%. PT STATES PAIN TOLERABLE AT THIS TIME. PT COMPLAINT OF PURITIS, REQUESTING MEDICATION, GIVEN NUBAINE. PT BOWEL TONES ACTIVE, DENIES NAUSEA, TOLERATING CLEAR LIQUID DIET. PT INDEPENDENT IN ROOM. PT VOIDING WITHOUR DIFFICULTY. PT DENIES NEEDS AT THIS TIME. FAMILY AT BEDSIDE.
--- NOTE | 2016-10-27 18:14 | NUR ---
PT INDEPENDENT IN ROOM. PT ON ROOM AIR, CONTINUOUS PULSE OX. PT TOLERATING CLEAR LIQUID, BOWEL TONES ACTIVE, DENIES FLATUS. PT WITH MIDLINE INCISION INTACT, SMALL AMOUNT OF DRAINAGE, JERRY TO LLQ DRAINING SMALL AMOUNT OF SEROSANGUNIOUS FLUID. PT PAIN WELL CONTROLLED WITH DILAUDID HAND DRY CLEANER AND TORADOL. PT AMBULATED IN DIAZ SEVERAL TIMES. PT RECEIVED NUBAIN X1. PT VOIDING QS.
--- NOTE | 2016-10-27 19:10 | NUR ---
BEDSIDE SHIFT REPORT RECEIVED FROM SOPHIA CARRASCO. PT IS SITTING AT SIDE OF BED, ALERT/ORIENTED. IV INFUSING WNL. RA. PT STATES HE IS FEELING ITCHY AND WOULD LIKE NUBAIN WHEN IT IS AVAILABLE AND STATES THAT HE WOULD ALSO LIKE THE TORADOL FOR PAIN WHEN IT IS AVAILABLE. CALL LIGHT IS WITHIN REACH, NO FURTHER REQUESTS AT THIS TIME.
--- NOTE | 2016-10-27 20:25 | NUR ---
ASSESSMENT COMPLETED. ALERT/ORIENTED, REPORTS THAT WITH HICCUPS, PAIN INCREASES TO 5/10, PRN TORADOL GIVEN. LUNGS CLEAR, RA. HR REGULAR. BOWEL TONES ACTIVE, DENIES NAUSEA, NO FLATUS. DRESSING TO MIDLINE ABDOMEN HAS SMALL AMOUNT OF DRAINAGE PRESENT, OTHERWISE IS INTACT. JERRY DRAINING SMALL AMOUNT OF SEROSANGUINOUS FLUID, DRESSING AT INSERTION SITE IS C/D/I. IV INFUSING WNL. SCD'S. DENIES FURTHER REQUESTS AT THIS TIME.
--- NOTE | 2016-10-27 23:10 | NUR ---
PT APPEARS TO BE SLEEPING AT THIS TIME, NO APPARENT DISTRESS. RESPIRATIONS ARE EVEN AND UNLABORED. WILL CONTINUE TO MONITOR.
--- NOTE | 2016-10-28 02:00 | NUR ---
PT CALLED BECAUSE IV PUMP WAS BEEPING. ASSESSMENT COMPLETED. NO CHANGES FROM PREVIOUS ASSESSMENT. PT REPORTED ITCHING, NUBAIN GIVEN. DENIES FURTHER REQUESTS AT THIS TIME.
--- NOTE | 2016-10-28 05:04 | NUR ---
UNEVENTFUL SHIFT, PT ABLE TO SLEEP MORE THAN PREVIOUS NIGHT. PAIN WELL CONTROLLED WITH DILAUDID BOILER/CHILLER OPERATOR AND PRN TORADOL. LUNGS CLEAR, RA. HR REGULAR. BOWEL TONES ACTIVE, NO NAUSEA, NO FLATUS. VOIDING QS. NUBAIN GIVEN ONCE FOR ITCHING. CONTINUES TO HAVE INTERMITTENT HICCUPS. IV PATENT, D5LR @85. MIDLINE DRESSING HAS SMALL AMOUNT OF DRAINAGE PRESENT, UNCHANGED. JERRY TO LLQ, NOT MUCH OUTPUT, DRESSING AT INSERTION SITE IS C/D/I. INDEPENDENT IN ROOM, STEADY ON FEET.
--- NOTE | 2016-10-28 07:06 | NUR ---
BEDSIDE HANDOFF REPORT RECEIVED FROM ASSISTANT PRESS OPERATOR RN. PT RESTING IN BED. PT DENIES NEEDS AT THIS TIME.
--- NOTE | 2016-10-28 09:00 | NUR ---
PT RESTING IN BED. PT RATING PAIN 4/10 TO ABD, REQUESTING PAIN MEDICATION, IV TORADOL GIVEN. PT ON ROOM AIR, LUNG SOUNDS CLEAR, O2 SATS 96%, CONTINUOUS PULSE OX. PT DENIES NAUSEA, BOWEL TONES ACTIVE, NO REPORT OF FLATUS. PT TOLERATING CLEAR LIQUID DIET. PT AMBULATING INDEPENDENTLY IN ROOM AND DIAZ. PT MIDLINE INCISION INTACT, SMALL AMOUT OF DRAINAGE, UNCHANGED. JERRY DRAIN TO LLQ, DRAINING SEROSANGUINOUS FLUID. PT DENIES NEEDS AT THIS TIME.
--- NOTE | 2016-10-28 10:13 | OR ---
[facility] [address], [place] [address] Signed DATE OF SERVICE: 10/26/2016 PREOPERATIVE DIAGNOSES: Recurrent diverticulitis of sigmoid colon with valerio diverticular chronic abscess. POSTOPERATIVE DIAGNOSES: Recurrent diverticulitis of sigmoid colon with valerio diverticular chronic abscess. PROCEDURE Sigmoid colectomy with coloproctostomy (side-to-end). Mobilization of splenic flexure. SURGEON: Citlali Kay MD. ANESTHESIA: General endotracheal (Citlali Soto CRNA). INDICATION: This 51-year-old white man is a patient of Dr. Efrain Bowman and was initially seen by me with severe diverticulitis, which progressed to 2 valerio diverticular abscesses. He was hospitalized by me and ultimately underwent laparoscopic valerio-diverticular abscess drainage. He had undergone colonoscopy a year ago at the [facility] in [place]. He was markedly improved by operative intervention and is maintained with oral antibiotics as an outpatient. A plan had been made for an interval 6 week sigmoid colectomy as he did have a complex diverticular abscesses. Since that time, however, he has had recurrent bouts of left lower abdominal pain, missing work, and requiring oral antibiotic therapy once again. Rather than delay to much longer I have recommended sigmoid resection at this point. He understands as does his , the risks of bleeding, infection, anastomotic failure, need for other indicated procedures and so on. Understanding this, he wished to proceed. FINDINGS: The infraumbilical incision from prior laparoscop y was firm as would be expected in this time interval. There were adhesions of small bowel to the left lower abdominal wall as well as a dense phlegmon and chronic abscess of the sigmoid to the abdominal wall. Omental adhesions were freed up as well as the dense adherence of the sigmoid phlegmon to the abdominal wall and there appeared to be a chronic abscess cavity with thick escalante and minimal amounts of purulence. Resection included a margin of the distal descending colon, all of the sigmoid down to Electronically Signed By: CITLALI KAY MD 10/28/16 1013 PATIENT NAME: EVELYN SHEN OPERATIVE REPORT DATE OF : 63 PHYSICIAN: CITLALI KAY MD REPORT #: [id number] REPORT IS CONFIDENTIAL AND NOT TO BE RELEASED WITHOUT AUTHORIZATION [facility] [address] [place] [id number] Signed the upper rectum beyond the area of the coalescence of the teniae epiploica. The side-to-end coloproctostomy was accomplished without complication. The remaining abdominal contents appeared normal. PROCEDURE IN DETAIL: The patient was brought to the operating room, given a general endotracheal anesthetic. A full bowel prep including oral antibiotics had been given, intravenous antibiotics of cefoxitin had been given as well. Sequential compression device, stockings were used, and heparin subcutaneously administered. A Comer catheter was placed. The abdomen was clipped and prepared with a chlorhexidine solution and draped sterilely. The infraumbilical incision was still firm based on the interval of time since operation. An incision was made from there distalward to the symphysis pubis. Dissection was carried to the subcutaneous tissue with electrocautery. The midline fascia was incised and properitoneal space entered and the perineum entered and divided. The abdomen incision was extended and cephalad a bit to accommodate the retractors and to provide better exposure. Small bowel loops had adhesions to the left lower abdominal wall as well as to the area of the sigmoid. These were taken down with electrocautery and blunt dissection freeing them entirely. A Bookwalter re tractor with a small ring was then applied to the table. A dense inflammatory cicatrix of the sigmoid to the abdominal wall was noted. This was bluntly free. This is the area of prior abscess, no doubt. The sigmoid once freed showed a dense chronic inflammatory phlegmon with some minimal area of purulence. This was no doubt related to the perforated diverticulitis problem. The small bowel was isolated to the right side of the abdomen, exposing only the retroperitoneum and the left colon. The transverse colon had been retracted cephalad outside of the abdomen and secured with moistened laparotomy packs. Down in the pelvis, there appeared to be no particular problem other than inflammatory changes. There is no sign of colovesical fistula. The white line of Toldt was incised with an electrocautery device freeing the sigmoid to the midline more fully. Further dissection cephalad allowed for freeing of the splenic flexure to mobilize the left colon more fully. An area of normal colon versus thickened colon was identified in the proximal sigmoid and distal descending colon area. This was marked with a suture. The mesentery was Electronically Signed By: CITLALI KAY MD 10/28/16 1013 PATIENT NAME: EVELYN SHEN OPERATIVE REPORT DATE OF : 63 PHYSICIAN: CITLALI KAY MD REPORT #: [id number] REPORT IS CONFIDENTIAL AND NOT TO BE RELEASED WITHOUT AUTHORIZATION [address] [address] Signed scored with electrocautery taking dissection down toward the sacral promontory. Sequential application of hemostats was undertaken to the mesentery, which was divided and ligated with 0 silk ties. The major vascular pedicles were doubly secured. A 75-mm DAVID stapling device was used to transect the distal descending colon. Further dissection of the rectal mesentery was undertaken with all due care avoiding the retroperitoneal structures including the left ureter. An area of the upper to mid rectum was designated as most appropriate for transection. Further dissection was undertaken toward this area of demarcation. Application of hemostats and 0 silk ties to the major vascular pedicles was accomplished as well. The right angle bowel clamp was applied to the upper rectal area in an area designated appropriate for anastomosis. The area of the pelvis was isolated with laparotomy packs in case of enteric spillage. The left colon was mobilized a bit more using blunt electrocautery dissection, freeing it to align in a tension-free manner to the pelvis anticipating anastomosis. Another clamp applied distal to the right angle bowel clamp. The bowel transected with prostate scissors. Specimen was passed off the table and subsequently examined and found to have no evidence of neoplasm in the sigmoid colon, only the dense cicatrix and valerio diverticular abscess problem. The stapled end of the transected colon was oversewn with interrupted 2-0 silk sutures to avoid adhesions and so forth. A side-to-end coloproctostomy was then undertaken in a 2 layer technique with interrupted 3-0 silk suture. Excellent hemostasis was noted. The prep was quite good as well. There was no spillage of enteric contents. Once completely isolating, laparotomy packs were removed. Irrigation undertaken and gloves changed. Through a left lower abdominal stab incision a 7-mm flat Patrick drain was placed into the left pericolic gutter and down into the pelvis. Oozing in the retro cysto-colonic area was made hemostatic with some Sarmad powder hemostatic agent. The small bowel was allowed to return to its natural anatomic configuration after irrigation of the abdomen. The omentum was placed over the abdominal contents. The midline fascia was reapproximated with running bidirectional #1 PDS suture. The subcutaneous tissue was irrigated and skin closed with running subcuticular 3-0 Vicryl. Steri-Strips were applied as was a Mepilex silver sponge dressing and an OpSite. The Electronically Signed By: CITLALI KAY MD 10/28/16 1013 PATIENT NAME: EVELYN SHEN OPERATIVE REPORT DATE OF : 63 PHYSICIAN: CITLALI KAY MD REPORT #: [id number] REPORT IS CONFIDENTIAL AND NOT TO BE RELEASED WITHOUT AUTHORIZATION [facility] [address] [place] [id number] Signed drain had been attached to bulb suction. The patient tolerated the procedure well. He was ultimately extubated and transferred to recovery in good condition. BLOOD LOSS: 100 mL or so at most. Sponge, needle, and instrument counts were reported as correct x3. MD MONIE Baez/Alverto /[id number] cc: Efrain Bowman DO Electronically Signed By: CITLALI KAY MD 10/28/16 1013 PATIENT NAME: EVELYN SHEN OPERATIVE REPORT DATE OF : 63 PHYSICIAN: CITLALI KAY MD REPORT #: [id number] REPORT IS CONFIDENTIAL AND NOT TO BE RELEASED WITHOUT AUTHORIZATION
--- NOTE | 2016-10-28 10:30 | NUR ---
PT WALKING FOR THE SECOND TIME THIS MORNING WHEN PT IS DONE HE WILL SHOWER. VITALS TAKEN
--- NOTE | 2016-10-28 12:32 | NUR ---
PT COMPLETED SHOWER. STERISTRIPS TO MIDLINE INCISION INTACT. DRAIN GAUZE APPLIED TO JERRY SITE, SECURED WITH TAPE. IV FLUID INFUSING. PT STATES PAIN TOLERABLE AT THIS TIME. PT DENIES NEEDS.
--- NOTE | 2016-10-28 15:11 | NUR ---
VITALS TAKEN PT IS WALKING FOR THE FITFTH TIME TO DAY. PT DID NOT NEED ANYTHING ELSE AT THE MOMENT
--- NOTE | 2016-10-28 15:18 | NUR ---
PT WALKING IN THE DIAZ, INDEPENDENT.
--- NOTE | 2016-10-28 18:27 | NUR ---
PT ALERT/ORIENTED. INDEPENDENT IN ROOM AND DIAZ. PT PAIN WELL CONTROLLED WITH TORADOL AND DILAUDID PACKING CLERK. PT ON ROOM AIR, CONTINUOUS PULSE OX. PT ADVANCED TO FULL LIQUID DIET, TOLERATING WELL, DENIES NAUSEA. BOWEL TONES ACTIVE, REPORT OF FLATUS X1. MIDLINE DRESSING REMOVED PER ORDER, STERISTRIPS INTACT, GAUZE REINFORCEMENT FOR SMALL AMOUNT OF DRAINAGE. PT WITH JERRY DRAIN, DRAINING SEROSANGUINOUS FLUID. PT VOIDING QS.
--- NOTE | 2016-10-28 18:32 | NUR ---
PT IS SITTING UP ON SIDE OF BED VISITING WITH . PT ASKED FOR MORE ICE WATER
--- NOTE | 2016-10-28 20:23 | NUR ---
WALKED IN HALLWAY WITH , SHE IS GOING HOME FOR THE EVENING, PT IS WATCHING PROGAM ON TV, REQUESTED MEDICATION FOR ITCHING. NUBAIN GIVEN.
--- NOTE | 2016-10-28 22:00 | NUR ---
PT UP TO SINK AND ABLE TO DO OWN HS CARES, REPORTS INCREASED ABD CRAMPING AND PASSING MORE FLATUS. DENIES NAUSEA. VOIDING WELL. IN GOOD SPIRITS.
--- NOTE | 2016-10-29 06:40 | NUR ---
GOOD PAIN CONTROL WITH COMMERCIAL MARKETING SPECIALIST AND TORADOL, NO NAUSEA, AMBULATED HALLS SEVERAL TIMES, +FLATUS, MED LOOSE STOOL, IN GOOD SPIRITS.
--- NOTE | 2016-10-29 08:45 | NUR ---
PT RESTING IN BED. PT STATES PAIN TOLERABLE AT THIS TIME. LUNG SOUNDS CLEAR, ON ROOM AIR, CONTINUOUS PULSE OX. DILAUDID RATER ASSOCIATE, IV FLUIDS INFUSING AT 85 ML/HR. PT TOLERATING FULL LIQUID DIET, DENIES NAUSEA, BOWEL TONES ACTIVE. MIDLINE INCISION OPEN TO AIR, STERISTRIPS INTACT. JERRY DRAIN TO LLQ, DRAINING SEROSANGUINOUS FLUID. PT INDEPENDENT IN ROOM AND DIAZ. PT VOIDING QS, PT HAD BM THIS AM, LOOSE GREENISH STOOL.
--- NOTE | 2016-10-29 09:08 | NUR ---
PT WALKING IN DIAZ, TOLERATING WELL.
--- NOTE | 2016-10-29 10:17 | NUR ---
PT SHOWERING. INDEPENDENT. VSS. VOIDING QS. 20 ML SEROSANGUINOUS FLUID DRAINED FROM JERRY.
--- NOTE | 2016-10-29 14:24 | NUR ---
PT UP TO BATHROOM. DISCUSSED PAIN MANAGEMENT WITH PT, PLAN TO TRANSITION TO ORAL PAIN MEDICATION. PT LUNG SOUNDS CLEAR. DENIES NAUSEA, BOWEL TONES ACTIVE. NO ACUTE CHANGES. JERRY DRAIN REMOVED BY DR. KAY. PT DENIES NEEDS AT THIS TIME.
--- NOTE | 2016-10-29 17:35 | NUR ---
PT STATES PAIN WELL CONTROLLED WITH 1 TAB PERCOCET. PT EAING DINNER, DENIES NAUSEA. PT DENIES NEEDS AT THIS TIME.
--- NOTE | 2016-10-29 17:57 | NUR ---
PT ON ROOM AIR, LUNG SOUNDS CLEAR. PT TRANSITIONED TO PERCOCET, TOLERATING WELL. PT ON REGULAR DIET, DENIES NAUSEA, BOWEL TONES ACTIVE, SMALL BM. MIDLINE INCISION WITH STERISTRIPS, OPEN TO AIR, JERRY DRAIN REMOVED BY DR. KAY. PT WALKING INDEPENDENT. SALINE LOCKED, COLOR GRINDER DISCONTINUED. PT VOIDING QS. POSSIBLY WILL DISHCARGE TOMORROW.
--- NOTE | 2016-10-30 00:32 | NUR ---
PT HAS NOT USED CALL LIGHT SINCE MEDS WERE GIVEN AT BEDTIME. EYES CLOSED RESP EVEN AND UNLABORED AT THIS TIME.
--- NOTE | 2016-10-30 04:10 | NUR ---
PT AWAKE, REQUESTED PAIN MED. STATES HE WOKE BRIEFLY AT MIDNIGHT, BUT HAS BEEN SLEEPING "GOOD" ALL NIGHT. STATES THAT HE IS FEELING BETTER, AND SLEEPING BETTER TONIGHT HAS BEEN GOOD. UP TO BATHROOM TO VOID.
--- NOTE | 2016-10-30 05:17 | NUR ---
PT UP WALKING HALLS. EARLIER HE WAS UP TO BATHROOM, PASSED LARGE AMOUNT GAS, HAD A LOOSE BROWN STOOL. REQUESTED AND RECEIVED CUP OF HOT TEA.
--- NOTE | 2016-10-30 06:17 | NUR ---
PT ORDERING BREAKFAST AT THIS TIME. HAS BEEN UP AND AMBULATED THIS AM, DRANK CUP OF TEA. DENIES NAUSEA. HAD A LOOSE BROWN BM X1 THIS SHIFT, PASSING GAS WELL. HAD HICKUPS PRIOR TO MIDNIGHT. MEDICATED X 2 FOR PAIN.
[2016-10-30] MEDS ORDERED: OXYCODON-ACETA1 EAC2 PO (09:27)
--- NOTE | 2016-10-30 09:30 | NUR ---
PT AWAKE AMB IN ROOM INDEPENDENTLY. DENIES PAIN, NAUSEA OR OTHER CONCERNS AT THIS TIME. ATE 100% OF BREAKFAST, MARIAH WELL. REPORT POSITIVE FLATUS. MIDLINE INCISION WELL APPROXIMATED, STERI STRIPS IN PLACE, NO DRAINAGE, REDNESS, OR INFLAMMATION NOTED.
--- NOTE | 2016-11-01 22:37 | DS ---
[facility] [address], [place] [address] Signed ADMIT DATE: 10/26/2016 DISCHARGE DATE: 10/30/2016 REASON FOR ADMISSION: This 51-year-old white man is the patient of Dr. Efrain Bowman, initially seen by me with severe diverticulitis, progressed into 2 peridiverticular abscesses. He was hospitalized by me and ultimately underwent laparoscopic peridiverticular abscess drainage. He had undergone colonoscopy a year ago at the [facility] in [facility]. He was improved by this operative intervention and was maintained on oral antibiotics as an outpatient. A plan was made for an interval 6 week colectomy, due to the complex diverticular abscesses. Since that time; however, he has had recurrent bouts of left lower abdominal pain, missing the work and required oral antibiotic therapy. On that basis, a more expedient sigmoid colectomy was deemed appropriate. He is admitted for that purpose. PERTINENT PHYSICAL EXAM: GENERAL: A pleasant white man who looks to be in no acute distress. He is missing his front teeth from recent extractions. NECK: Trachea is midline. CHEST: Clear. HEART: Regular without murmur. ABDOMEN: Mildly tender in the left lower abdomen, but without palpable mass. EXTREMITIES: Show no clubbing, cyanosis, or edema. HOSPITAL COURSE: On October 26, 2016, he underwent laparotomy. This included sigmoid colectomy for coloproctostomy (site) as well as mobilization of splenic flexure. He had a dense phlegmon, burned-out abscess that tethered the sigmoid to the abdominal wall as well as small bowel loops to the area as well. Complete resection was accomplished without problem. Postoperatively, he was begun on clear liquids right away and maintained with a ONLINE EDUCATION MANAGER device for pain control. Comer catheter was removed, the 1st postoperative day. He was mobilized more fully and advanced in his diet to full liquids and ultimately had bowel movements and then a solid diet was administered. Pain medication Percocet had been given as well as Motrin and Toradol intravenously administered. By day of discharge, he was ambulating well, tolerating a regular diet. A drain was placed at the time of operation, has been re moved and incision is healing well. It is anticipated that he will not lift more than 20 pounds for the next 3 weeks. We will see him back in 4 to 6 weeks following discharge. Sooner if he is having problems of course. He is encouraged to ambulate on a da fatimah basis and is permitted to shower and Electronically Signed By: CITLALI KAY MD 11/01/16 2237 PATIENT NAME: EVELYN SHEN DISCHARGE SUMMARY DATE OF : 63 PHYSICIAN: CITLALI KAY MD REPORT #: [id number] REPORT IS CONFIDENTIAL AND NOT TO BE RELEASED WITHOUT AUTHORIZATION [facility] [address], [place] [address] Signed will keep Steri-Strips in place. DISCHARGE DIAGNOSES: Severe diverticulitis with peridiverticular phlegmon. History of peridiverticular abscess status post laparoscopic drainage of abscesses. Status post sigmoid colectomy with side-to-end coloproctostomy (anterior resection) on October 26, 2016. History of tobacco use. DISCHARGE MEDICATIONS: Percocet 7.5/325 one to two p.o. q.4 hours p.r.n. pain, #30. Baclofen 10 mg p.o. t.i.d. Lisinopril 20 mg p.o. daily. Ibuprofen 600 mg p.o. q.12 hours as needed for pain. Trazodone 250 mg p.o. at bedtime. He will discontinue the Cipro and Flagyl that he was on previously. He may use his nicotine patch as he tolerates it. MD MONIE Baez/Alverto /[id number] cc: Efrain Bowman DO Electronically Signed By: CITLALI KAY MD 11/01/16 2237 PATIENT NAME: EVELYN SHEN DISCHARGE SUMMARY DATE OF : 63 PHYSICIAN: CITLALI KAY MD REPORT #: [id number] REPORT IS CONFIDENTIAL AND NOT TO BE RELEASED WITHOUT AUTHORIZATION
== END 2016-10-30 10:35 | disposition home or self-care (01) | DRG 330 ==
LOC: DSVR 10-26 08:55 → MS 10-26 10:45
PROVIDERS: ADMIT Surgery
PROC: 0DTN0ZZ Resection of Sigmoid Colon, Open Approach (ICD-10-PCS; principal; 2016-10-26 10:45)
DX: K57.20 Diverticulitis of large intestine with perforation and abscess without bleeding (principal); I10 Essential (primary) hypertension; F17.220 Nicotine dependence, chewing tobacco, uncomplicated; Z90.49 Acquired absence of other specified parts of digestive tract; R06.6 Hiccough
CPT/HCPCS: 00790; 36415; 80053; 85025; 94760; 94762; J0330; J0694; J1100; J1170; J1644; J1885; J2250; J2300; J2405; J2550; J2704; J2710; J2765; J3010; J7120

== ENCOUNTER 2022-06-08 06:20 | Day surgery (SDC) | payer OTHER ==
[~2022-06-08] VITALS: Ht 180.3 cm; Wt 109.1 kg
--- NOTE | 2022-06-08 08:18 | NUR ---
06/08/22 0818 Luz Scott 0748 PT ARRIVED TO PACU TALKING TO RN. MACARIO. PLAN OF CARE DISCUSSED. 0802 REPORTS PT NEEDS TO FOLLOW UP IN 5 YEARS. O2 REMOVED AND PT SIPPING JUICE. 0812 PT UP TO BATHROOM AND REPORTS PASSING LARGE AMOUNT OF GAS. 0817 PT BACK TO BED AND GETTING DRESSED PT DENIES CONCERNS.
--- NOTE | 2022-06-08 08:39 | OR ---
[facility] [address], [place] [address] Signed DATE OF OPERATION: 06/08/2022 SURGEON: Bruno Mason MD PREOPERATIVE DIAGNOSES: 1. Paternal grandfather with colon cancer in his 50s. 2. 2 mm diminutive polyp removed in 2016 at age 49. 3. Diverticulosis. 4. Hemorrhoids. 5. Sigmoid resection for diverticular disease in [address] Samuel. POSTOPERATIVE DIAGNOSES: 1. Minimal to moderate left-sided diverticulosis. 2. Lozada side-to-end colorectal anastomosis at 18 cm. 3. Minimal to moderate internal hemorrhoids. PROCEDURE: Colonoscopy without biopsy. ESTIMATED BLOOD LOSS: None. INDICATIONS: Evelyn is a 56-year-old gentleman asked to see me for followup colonoscopy. We know his paternal grandfather had colon cancer in his 50s. Evelyn underwent his colonoscopy in 2015 at the age of 49 [address] Stinson. A 2 mm diminutive polyp was removed and lost. He was noted to have diverticulosis along with hemorrhoids. He then underwent a sigmoid resection in 2017 for diverticular disease with Dr. Samuel at the age of 51. He said he has done well since that time. He has to be a little careful about eating too much food, otherwise he will have loose stool. In the office, I had given him a pamphlet on colonoscopy. We had reviewed the nature of the test. There is risk including, but not limited to gas bloating, crampy abdominal pain, bleeding, perforation requiring surgery, and missed diagnosis. We also had reviewed the written instructions for a bowel prep line by line. In addition, he understands the need for IV conscious sedation. He has done well with Versed in the past. He had expressed understanding and wished to proceed. PROCEDURE NOTE: Evelyn was taken into our endoscopy suite and placed in the left lateral decubitus position. He was given a total of 4 mg of Versed and 100 mcg of fentanyl. A digital Electronically Signed By: BRUNO MASON MD 06/08/22 0839 PATIENT NAME: EVELYN SHEN OPERATIVE REPORT DATE OF : 63 REPORT #: [id number] PHYSICIAN: BRUNO MASON MD PCP: OTHER PCP REPORT IS CONFIDENTIAL AND NOT TO BE RELEASED WITHOUT AUTHORIZATION [facility] [address], [place] [address] Signed rectal exam was performed. He had good sphincter tone. Not much in the way of any external hemorrhoids. There were no masses. His prostate is a little indurated and swollen consistent with his age. The adult colonoscope had been introduced and advanced under direct visualization of the camera without difficulty. His prep was good. We could easily see the appendiceal orifice and the ileocecal valve. The scope was then slowly withdrawn. We took pictures throughout for photodocumentation. The entire length of his colon is around 105 cm. He does have minimal to moderate left-sided diverticulosis. They are moderate in size, minimal to moderate in number, and scattered about. We can see the anastomosis at 18 cm. This is a standard Lozada side-to-end colorectal anastomosis. It is well healed. There is no stricture. There is no ulcerations or granulation tissue. The rectum was unremarkable. Upon retroflexion of the scope, he does have minimal to moderate internal hemorrhoid columns. After this, the gas was suctioned out and the colonoscope removed. Evelyn tolerated the procedure quite well. RECOMMENDATIONS: Evelyn can follow up in 5 years for repeat colonoscopy. He is always welcome to take a little additional prep given his diverticulosis. Bruno Mason MD ALB/MODL /[id number] cc: [facility] [place] Bruno Mason MD Copies: BRUNO MASON MD ~ Electronically Signed By: BRUNO MASON MD 06/08/22 0839 PATIENT NAME: EVELYN SHEN OPERATIVE REPORT DATE OF : 63 REPORT #: [id number] PHYSICIAN: BRUNO MASON MD PCP: OTHER PCP REPORT IS CONFIDENTIAL AND NOT TO BE RELEASED WITHOUT AUTHORIZATION
--- NOTE | 2022-06-08 13:22 | NUR ---
PT ALERT, ORIENTED AND HERE FOLLOWING UP ON COLON SURGERY. PT DEALT WITH HIS PREP APPROPRIATELY, SAID HIS S.I.L. WILL BE HERE AT IN. GOOD VISIT, REQUESTED FREDERICK, SOPHIA HERZOG HERE TO TAKE PT. GAVE BLESSING
== END 2022-06-08 08:24 | disposition home or self-care (01) ==
LOC: DS 06:20 → OPS 06:20 → DS 07:30 → OPS 08:24
PROVIDERS: ATTEND Colon & Rectal Surgery
PROC: 0DJD8ZZ Inspection of Lower Intestinal Tract, Via Natural or Artificial Opening Endoscopic (ICD-10-PCS; principal; 2022-06-08 07:30)
DX: K57.30 Diverticulosis of large intestine without perforation or abscess without bleeding (principal); Z80.0 Family history of malignant neoplasm of digestive organs; Z86.010 Personal history of colon polyps; K64.8 Other hemorrhoids
CPT/HCPCS: 99153; G0500; J2250; J3010; J7121